=== PATIENT | male | born 1940 | race Caucasian/White ===

== ENCOUNTER 2019-02-06 13:48 | Outpatient (CLI) | payer MEDICARE, BC | END 2019-02-06 13:49 | disposition home or self-care (01) | DRG 554 | LOC: CONVCARE 13:48 | PROVIDERS: ATTEND Orthopaedic Surgery | DX: M17.12 Unilateral primary osteoarthritis, left knee (principal) | CPT/HCPCS: 73562 ==

== ENCOUNTER 2019-05-15 05:31 | Inpatient (IN) | payer MEDICARE, BC ==
[~2019-05-15 05:31] MED LIST: SODIUM CHLORIDE 0.9% FLUSH 10 ML SOL IV PRN
[2019-05-15] MEDS: SCOPOLAMINE 1.5MG PATCH TD SCH (05:53)
[2019-05-15] MEDS ORDERED: LACTATED RINGERS 1,000 ML IV ONE (06:30)
[2019-05-15] MEDS ORDERED: BUPIVACAINE HCL 0.25% MPF 30 ML SOL INFIL ONE (06:59)
[2019-05-15] MEDS ORDERED: SODIUM CHLORIDE 20 ML 20 ML ONE (06:59)
[2019-05-15] MEDS ORDERED: METOPROLOL TARTRATE 5 MG/5 ML SOL IV ONE (06:59)
[2019-05-15] MEDS ORDERED: POVIDONE IODINE 5% SOL ONE (06:59)
[2019-05-15] MEDS ORDERED: BUPIVACAINE LIPOSOME 20 ML SUS ONE (07:00)
[2019-05-15] MEDS ORDERED: CELECOXIB 100 MG CAP PO ONE (07:00)
[2019-05-15] MEDS ORDERED: LACTATED RINGERS 1,000 ML IV SCH (07:30)
[2019-05-15] MEDS ORDERED: CEFAZOLIN SODIUM 1 GM PDS ONE ×2 (07:55→15:44)
[2019-05-15] MEDS ORDERED: MIDAZOLAM 2 MG/2 ML SOL ONE (07:56)
[2019-05-15] MEDS ORDERED: KETAMINE HYDROCHLORIDE 50 MG/ML SOL ONE (07:56)
[2019-05-15] MEDS ORDERED: MORPHINE SULFATE 0.5 MG/ML SOL ONE (07:56)
[2019-05-15] MEDS ORDERED: ONDANSETRON HCL 4 MG/2 ML SOL ONE (09:07)
[2019-05-15] MEDS ORDERED: METOCLOPRAMIDE HYDROCHLORIDE 5 MG/ML SOL ONE (09:07)
[2019-05-15] MEDS ORDERED: DEXAMETHASONE 20 MG/5 ML (4 MG/ML SOL) ONE (09:07)
[2019-05-15] MEDS ORDERED: PROPOFOL 500 MG/50 ML EMU IV ONE (09:07)
[2019-05-15] MEDS ORDERED: LABETALOL HYDROCHLORIDE 5 MG/ML SOL IV ONE (09:12)
[2019-05-15] MEDS: TRANEXAMIC ACID 100 MG/ML SOL ONE ×2 (09:19→10:33)
[2019-05-15] MEDS ORDERED: SODIUM CHLORIDE IV ONE (10:18)
[2019-05-15] MEDS ORDERED: DIAZEPAM 5 MG TAB PO PRN (12:21)
[2019-05-15] MEDS ORDERED: SODIUM CHLORIDE 0.9% 500 ML 500 ML IV PRN (12:21)
[2019-05-15] MEDS ORDERED: ONDANSETRON 4 MG ODT BU PRN (12:21)
[2019-05-15] MEDS ORDERED: DEXTROSE/SALINE 0.45/KCL 20MEQ 1,000 ML/1,000 ML SOL IV SCH (12:30)
[2019-05-15] MEDS: SODIUM CHLORIDE 0.9% FLUSH 10 ML SOL IV SCH ×2 (14:14→20:11)
[2019-05-15] MEDS: APAP/OXYCODONE 1 EACH TABLET PO PRN ×2 (14:41→20:10)
[2019-05-15] MEDS ORDERED: SODIUM CHLORIDE 0.9% 100 ML 100 ML IV ONE (15:44)
[2019-05-15] MEDS: CEFAZOLIN SODIUM 1 GM PDS 2 GM in SODIUM CHLORIDE 0.9% 100 ML 100 ML IV SCH (16:49)
[2019-05-15] MEDS: SENNOSIDES A AND B 8.6 MG TAB PO SCH (20:10)
[2019-05-15] MEDS: GABAPENTIN 300 MG CAP PO SCH (20:10)
[2019-05-16] MEDS ORDERED: CEFAZOLIN SODIUM 1 GM PDS ONE (00:08)
[2019-05-16] MEDS ORDERED: SODIUM CHLORIDE 0.9% 100 ML 100 ML IV ONE (00:08)
[2019-05-16] MEDS: CEFAZOLIN SODIUM 1 GM PDS 2 GM in SODIUM CHLORIDE 0.9% 100 ML 100 ML IV SCH (00:26)
[2019-05-16] MEDS: SODIUM CHLORIDE 0.9% FLUSH 10 ML SOL IV SCH ×4 (00:27→21:08)
[2019-05-16] MEDS: APAP/OXYCODONE 1 EACH TABLET PO PRN ×6 (01:44→21:07)
[2019-05-16 07:18] LABS: HEMOGLOBIN 12.1 gm/dl (13.5-17.7); MEAN CORPUSCULAR HEMOGLOBIN 30.3 pg (27.0-32.0); MEAN CORPUSCULAR HGB CONC 33.6 gm/dl (32.0-36.0)
[2019-05-16] MEDS: GABAPENTIN 300 MG CAP PO SCH ×2 (08:26→21:08)
[2019-05-16] MEDS: RIVAROXABAN 10 MG TAB PO SCH (08:26)
[2019-05-16] MEDS: FERROUS GLUCONATE 324 MG TABLET PO SCH (08:26)
[2019-05-16] MEDS: SCOPOLAMINE 1.5MG PATCH TD SCH (08:27)
[2019-05-16] MEDS: ACETAMINOPHEN 325 MG PO PRN (11:01)
[2019-05-16] MEDS ORDERED: ACETAMINOPHEN 500 MG 500 MG TAB PO PRN (11:44)
[2019-05-16] MEDS ORDERED: FEXOFENADINE HCL 180 MG TAB PO PRN (11:44)
[2019-05-16] MEDS ORDERED: BISACODYL 5 MG TAB ECT PO PRN (11:44)
[2019-05-16] MEDS ORDERED: GABAPENTIN 300 MG CAP PO SCH (14:00)
[2019-05-16] MEDS: LISINOPRIL 20 MG TAB PO SCH (14:03)
[2019-05-16] MEDS: HYDROCHLOROTHIAZIDE/TRIAMTER 25/37.5 CAPSULE PO SCH (14:03)
[2019-05-16] MEDS: SENNOSIDES A AND B 8.6 MG TAB PO SCH (21:08)
[2019-05-16] MEDS: FINASTERIDE 5 MG TAB PO SCH (21:08)
[2019-05-16] MEDS: TAMSULOSIN HYDROCHLORIDE 0.4 MG CAP PO SCH (21:08)
[2019-05-17] MEDS: APAP/OXYCODONE 1 EACH TABLET PO PRN ×2 (01:38→05:08)
[2019-05-17] MEDS: SODIUM CHLORIDE 0.9% FLUSH 10 ML SOL IV SCH ×3 (05:08→21:26)
[2019-05-17 07:17] LABS: HEMOGLOBIN 11.6 gm/dl (13.5-17.7); MEAN CORPUSCULAR HEMOGLOBIN 30.4 pg (27.0-32.0); MEAN CORPUSCULAR HGB CONC 33.7 gm/dl (32.0-36.0)
[2019-05-17] MEDS: GABAPENTIN 300 MG CAP PO SCH ×4 (09:36→21:26)
[2019-05-17] MEDS: CHOLECALCIFEROL 1,000 IU (25 MCG) TAB PO SCH (09:37)
[2019-05-17] MEDS: HYDROCHLOROTHIAZIDE/TRIAMTER 25/37.5 CAPSULE PO SCH (09:37)
[2019-05-17] MEDS: LISINOPRIL 20 MG TAB PO SCH (09:37)
[2019-05-17] MEDS: RIVAROXABAN 10 MG TAB PO SCH (09:37)
[2019-05-17] MEDS: PANTOPRAZOLE SODIUM 40 MG ECT PO SCH (09:37)
[2019-05-17] MEDS: FERROUS GLUCONATE 324 MG TABLET PO SCH (09:38)
[2019-05-17] MEDS: OXYCODONE HYDROCHLORIDE 5 MG TAB PO PRN (09:41)
[2019-05-17] MEDS: ACETAMINOPHEN 325 MG PO PRN ×2 (12:52→21:27)
[2019-05-17] MEDS: CELECOXIB 100 MG CAP PO SCH (13:40)
[2019-05-17] MEDS: FINASTERIDE 5 MG TAB PO SCH (21:26)
[2019-05-17] MEDS: SENNOSIDES A AND B 8.6 MG TAB PO SCH (21:26)
[2019-05-17] MEDS: TAMSULOSIN HYDROCHLORIDE 0.4 MG CAP PO SCH (21:26)
[2019-05-18] MEDS: ACETAMINOPHEN 325 MG PO PRN ×3 (04:33→21:10)
[2019-05-18] MEDS: SODIUM CHLORIDE 0.9% FLUSH 10 ML SOL IV SCH (04:35)
[2019-05-18 07:14] LABS: HEMOGLOBIN 11.2 gm/dl (13.5-17.7); MEAN CORPUSCULAR HEMOGLOBIN 30.7 pg (27.0-32.0); MEAN CORPUSCULAR HGB CONC 33.6 gm/dl (32.0-36.0)
[2019-05-18] MEDS ORDERED: MAGNESIUM HYDROXIDE 30 ML SUS PO PRN (08:26)
[2019-05-18] MEDS: CHOLECALCIFEROL 1,000 IU (25 MCG) TAB PO SCH (09:07)
[2019-05-18] MEDS: RIVAROXABAN 10 MG TAB PO SCH (09:07)
[2019-05-18] MEDS: FERROUS GLUCONATE 324 MG TABLET PO SCH (09:08)
[2019-05-18] MEDS: PANTOPRAZOLE SODIUM 40 MG ECT PO SCH (09:08)
[2019-05-18] MEDS: HYDROCHLOROTHIAZIDE/TRIAMTER 25/37.5 CAPSULE PO SCH (09:12)
[2019-05-18] MEDS: CELECOXIB 100 MG CAP PO SCH (09:12)
[2019-05-18] MEDS: GABAPENTIN 300 MG CAP PO SCH ×3 (09:12→21:09)
[2019-05-18] MEDS: LISINOPRIL 20 MG TAB PO SCH (09:13)
[2019-05-18] MEDS: TAMSULOSIN HYDROCHLORIDE 0.4 MG CAP PO SCH (21:09)
[2019-05-18] MEDS: FINASTERIDE 5 MG TAB PO SCH (21:09)
[2019-05-18] MEDS: SENNOSIDES A AND B 8.6 MG TAB PO SCH (21:09)
[2019-05-19] MEDS: ACETAMINOPHEN 325 MG PO PRN ×4 (01:55→20:41)
[2019-05-19] MEDS: OXYCODONE HYDROCHLORIDE 5 MG TAB PO PRN (07:54)
[2019-05-19] MEDS: GABAPENTIN 300 MG CAP PO SCH ×3 (09:16→20:42)
[2019-05-19] MEDS: CELECOXIB 100 MG CAP PO SCH (09:16)
[2019-05-19] MEDS: LISINOPRIL 20 MG TAB PO SCH (09:16)
[2019-05-19] MEDS: FERROUS GLUCONATE 324 MG TABLET PO SCH (09:16)
[2019-05-19] MEDS: CHOLECALCIFEROL 1,000 IU (25 MCG) TAB PO SCH (09:16)
[2019-05-19] MEDS: RIVAROXABAN 10 MG TAB PO SCH (09:16)
[2019-05-19] MEDS: PANTOPRAZOLE SODIUM 40 MG ECT PO SCH (09:16)
[2019-05-19] MEDS: HYDROCHLOROTHIAZIDE/TRIAMTER 25/37.5 CAPSULE PO SCH (09:19)
[2019-05-19] MEDS: ALUMINUM/MAGNESIUM 30 ML SUS PO PRN (20:40)
[2019-05-19] MEDS: FINASTERIDE 5 MG TAB PO SCH (20:42)
[2019-05-19] MEDS: TAMSULOSIN HYDROCHLORIDE 0.4 MG CAP PO SCH (20:42)
[2019-05-19] MEDS: SENNOSIDES A AND B 8.6 MG TAB PO SCH (20:43)
[2019-05-20 01:35] VITALS: TEMP 98.2
[2019-05-20] MEDS: ACETAMINOPHEN 325 MG PO PRN ×2 (01:37→09:22)
[2019-05-20 07:53] VITALS: BP 158/91; PULSE 79; RESP 16; O2SAT 95
[2019-05-20] MEDS: HYDROCHLOROTHIAZIDE/TRIAMTER 25/37.5 CAPSULE PO SCH (09:10)
[2019-05-20] MEDS: CELECOXIB 100 MG CAP PO SCH (09:10)
[2019-05-20] MEDS: FERROUS GLUCONATE 324 MG TABLET PO SCH (09:11)
[2019-05-20] MEDS: PANTOPRAZOLE SODIUM 40 MG ECT PO SCH (09:11)
[2019-05-20] MEDS: GABAPENTIN 300 MG CAP PO SCH (09:11)
[2019-05-20] MEDS: LISINOPRIL 20 MG TAB PO SCH (09:12)
[2019-05-20] MEDS: RIVAROXABAN 10 MG TAB PO SCH (09:12)
[2019-05-20] MEDS: CHOLECALCIFEROL 1,000 IU (25 MCG) TAB PO SCH (09:12)
[2019-05-20] MEDS: ALUMINUM/MAGNESIUM 30 ML SUS PO PRN (10:15)
== END 2019-05-20 10:22 | disposition home or self-care (01) | DRG 470 ==
LOC: ACUTE CARE 05:31
PROVIDERS: ADMIT Orthopaedic Surgery; ATTEND Orthopaedic Surgery
PROC: F01L0FZ Muscle Performance Assessment of Musculoskeletal System - Lower Back / Lower Extremity using Assistive, Adaptive, Supportive or Protective Equipment (ICD-10-PCS; 2019-05-15)
PROC: F0133ZZ Coordination/Dexterity Assessment of Neurological System - Whole Body (ICD-10-PCS; 2019-05-15)
PROC: 0SRD0J9 Replacement of Left Knee Joint with Synthetic Substitute, Cemented, Open Approach (ICD-10-PCS; principal; 2019-05-15 08:00)
PROC: F02Z3ZZ Grooming/Personal Hygiene Assessment (ICD-10-PCS; 2019-05-16)
PROC: F02Z0FZ Bathing/Showering Assessment using Assistive, Adaptive, Supportive or Protective Equipment (ICD-10-PCS; 2019-05-16)
DX: M17.12 Unilateral primary osteoarthritis, left knee (principal); Z96.652 Presence of left artificial knee joint; R33.9 Retention of urine, unspecified; I10 Essential (primary) hypertension; K59.01 Slow transit constipation
CPT/HCPCS: 36415; 51798; 73560; 85027; 85049; 94150; J0690; J1100; J2250; J2274; J2405; J2765; A6219; A6232; A9270-GY; J2704; J3490; Q3014

== ENCOUNTER 2019-06-19 08:40 | Outpatient (CLI) | payer MEDICARE, BC ==
[2019-05-20 07:53] VITALS: O2SAT 95
== END 2019-06-19 08:41 | disposition home or self-care (01) | DRG 561 ==
LOC: CONVCARE 08:40
PROVIDERS: ATTEND Orthopaedic Surgery
DX: Z47.1 Aftercare following joint replacement surgery (principal); Z96.652 Presence of left artificial knee joint
CPT/HCPCS: 73562